=== PATIENT | male | born 1985 | race Caucasian/White ===

== ENCOUNTER 2019-12-17 09:41 | Emergency (ER) | payer OTHER ==
[~2019-12-17] VITALS: Ht 185.4 cm; Wt 95.3 kg
[2019-12-17 10:36] LABS: ABSOLUTE NEUTROPHILS 7.6 thou/uL (1.4-8.2); BASOPHILS 0.3 % (0.0-2.0); EOSINOPHILS 0.8 % (0.0-3.0); HEMATOCRIT 47.9 % (42.0-52.0); HEMOGLOBIN 16.8 gm/dL (14.0-18.0); LYMPHOCYTES 13.2 % (24.0-44.0); MCHC 35.1 g/dL (28.0-37.0); MCV 88.3 fL (80.0-100.0); MONOCYTES 9.5 % (1.0-8.0); PLATELET COUNT 238 thou/uL (150-400); POLYS 76.2 % (36.0-66.0); RBC 5.43 mil/uL (4.50-6.00); RDW 12.7 % (10.5-14.5)
[2019-12-17 10:39] LABS: ANION GAP 5 mmol/L (7-16); BUN 7 mg/dL (7-18); CALCIUM 8.9 mg/dL (8.5-10.1); CHLORIDE 102 mmol/L (98-107); CO2 31 mmol/L (21-32); CREATININE 0.9 mg/dL (0.7-1.3); GLUCOSE 95 mg/dL (74-106); POTASSIUM 3.8 mmol/L (3.5-5.1); SODIUM 138 mmol/L (136-145)
[2019-12-17 10:49] LABS: ALBUMIN 4.4 g/dL (3.4-5.0); SGOT 24 U/L (15-37); SGPT 57 U/L (30-65); TOTAL BILIRUBIN 0.5 mg/dL (<0.1-1.0); TOTAL PROTEIN 7.6 g/dL (6.4-8.2); TROPONIN-I <0.06 ng/mL (<0.06)
[2019-12-17 11:35] VITALS: BP 121/79
--- NOTE | 2019-12-17 13:00 | EKG ---
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 RAMIREZ : 1985 Requested By: Carlo Freitas Order Number: [id number] MD: Gilmer Dee Measurements Intervals [place] Rate: 102 P: 75 OK: 135 QRS: 16 QRSD: 109 T: 36 QT: 341 QTc: 445 Interpretive Statements Sinus tachycardia RSR' in V1 or V2, right VCD ST elev, probable normal early repol pattern No previous ECG available for comparison Electronically Signed On 12-17-2019 12:59:06 CDT by Gilmer Dee [email or web address] <ELECTRONICALLY SIGNED> By: Gilmer Dee MD, [facility] 12/17/19 1259 0950 0950 Gilmer Dee MD, [facility] /EPI
== END 2019-12-17 11:35 | disposition home or self-care (01) ==
LOC: ER 09:41
PROVIDERS: Emergency Medicine
DX: R07.9 Chest pain, unspecified (principal); F32.9 Major depressive disorder, single episode, unspecified

== ENCOUNTER → 2021-04-16 | Outpatient (CLI) | payer OTHER | LOC: CAT 10:02 | PROVIDERS: ATTEND Family Medicine | DX: Z13.6 Encounter for screening for cardiovascular disorders (principal) ==

== ENCOUNTER → 2021-09-24 | Outpatient (CLI) | payer OTHER | LOC: SJCVCIMAG 08:11 | PROVIDERS: ATTEND Internal Medicine | DX: I08.2 Rheumatic disorders of both aortic and tricuspid valves (principal); R07.2 Precordial pain ==